=== PATIENT | male | born 1955 | race Caucasian/White ===

== ENCOUNTER → 2020-08-22 | Outpatient (CLI) | payer MEDICARE, BC ==
--- NOTE | 2020-08-22 11:12 | RAD ---
EXAM: Abdominal aortic sonogram. HISTORY: Hyperlipidemia. Cigarette smoking. Aneurysm screening. TECHNIQUE: Sonographic imaging of the abdominal aorta was performed. COMPARISON: None. FINDINGS: The proximal abdominal aorta measures 2.9 cm in caliber. The mid abdominal aorta measures 1 .6 cm in caliber. The distal abdominal aorta measures 1.4 cm in caliber. The common iliac arteries me asure 1.3 cm on the right and 1.2 cm on the left. IMPRESSION: No sonographic evidence of abdominal aortic aneurysm. Electronically signed by: Dione Dumont MD (08/22/2020 11:10 AM) [id number]
== END ==
LOC: US 10:19
PROVIDERS: ATTEND Family Medicine
DX: E78.2 Mixed hyperlipidemia (principal)
CPT/HCPCS: 76770

== ENCOUNTER → 2021-04-27 | Outpatient (CLI) | payer MEDICARE, BC ==
--- NOTE | 2021-04-27 17:01 | RAD ---
EXAMINATION: XR KNEE 3 [id number]. HISTORY: 65 years Male Reason: KNEE PAIN COMPARISON: None. FINDINGS: No fracture, dislocation or radiopaque foreign body. Minimal marginal osteophytes are seen in the medial and patellofemoral compartments. No significant joint space narrowing. No suprapatellar effusi on. IMPRESSION: Mild degenerative changes. Electronically signed by: Santo Gomez MD (04/27/2021 4:59 PM) [id number]
== END ==
LOC: RAD 13:58
PROVIDERS: ATTEND Family Medicine
DX: M17.11 Unilateral primary osteoarthritis, right knee (principal)
CPT/HCPCS: 73562